=== PATIENT | female | born 1980 | race Caucasian/White ===

== ENCOUNTER → 2016-11-29 | Outpatient (REF) | payer OTHER ==
[~2016-11-29] MED LIST: NAPR500T OR; No Historical Meds; PERC5TAB8 OR; [UNRECOGNIZED DRUG - REMARK]
== END | disposition home or self-care (01) ==
LOC: M LAB REF 17:04
PROVIDERS: ATTEND Advanced Practice Midwife
DX: Z34.83 Encounter for supervision of other normal pregnancy, third trimester (principal); Z36 Encounter for antenatal screening of mother; Z3A.00 Weeks of gestation of pregnancy not specified

== ENCOUNTER → 2017-01-17 | Outpatient (REF) | payer OTHER | LOC: M LAB REF 16:59 | PROVIDERS: ATTEND Specialist | DX: Z34.83 Encounter for supervision of other normal pregnancy, third trimester (principal); Z36 Encounter for antenatal screening of mother; Z3A.00 Weeks of gestation of pregnancy not specified ==

== ENCOUNTER 2017-01-29 21:21 | Outpatient (CLI) | payer OTHER ==
[~2017-01-29] VITALS: Ht 160 cm; Wt 85.0 kg
[2017-01-29 21:42] VITALS: BP 114/73
[2017-01-29] MEDS ORDERED: PRENTAB9 PO (21:46)
[2017-01-29] MEDS ORDERED: subutex PO (22:02)
[2017-01-29] MEDS ORDERED: CLEO300C2 PO (22:40)
[2017-01-29] MEDS ORDERED: CLINDAMYCIN 150 MG CAP PO ONE (22:45)
== END 2017-01-29 23:50 | disposition home or self-care (01) ==
LOC: M LDO 21:21 → EEVIPCON 21:21 → UNDOADMIN 21:41 → M LDI 21:41 → UNDODISIN 23:50
PROVIDERS: ATTEND Obstetrics & Gynecology
DX: O99.89 Other specified diseases and conditions complicating pregnancy, childbirth and the puerperium (principal); L73.2 Hidradenitis suppurativa; N90.89 Other specified noninflammatory disorders of vulva and perineum; M51.26 Other intervertebral disc displacement, lumbar region; F41.9 Anxiety disorder, unspecified; M48.06 Spinal stenosis, lumbar region; F19.90 Other psychoactive substance use, unspecified, uncomplicated; O99.333 Smoking (tobacco) complicating pregnancy, third trimester; Z3A.37 37 weeks gestation of pregnancy; O09.523 Supervision of elderly multigravida, third trimester

== ENCOUNTER 2017-02-11 22:34 | Inpatient (IN) | payer OTHER ==
[~2017-02-11] VITALS: Ht 160 cm; Wt 88.0 kg
[~2017-02-11 22:34] MED LIST changes: +CLEO300C2 PO; +PRENTAB9 PO; +subutex PO
[2017-02-11 22:46] VITALS: BP 122/71
[2017-02-12] VITALS (45 sets, daily range): BP systolic 81–150; BP diastolic 46–106
[2017-02-12] MEDS ORDERED: PENICILLIN G POTASSIUM IV 5 MU in D5W MINI-BAG PLUS 100 ML IV STA (00:20)
[2017-02-12 00:24] LABS: MEAN CORPUSCULAR HEMOGLOBIN 28.6 pg (27.0-33.0); MEAN CORPUSCULAR HGB CONC 32.8 g/dl (32.0-36.5); MEAN CORPUSCULAR VOLUME 87.2 fl (80.0-96.0)
[2017-02-12] MEDS: miSOPROStol 50 MCG 1/2 TAB (S0191) PO SCH ×3 (00:44→08:57)
--- NOTE | 2017-02-12 01:54 | HPE ---
DATE OF ADMISSION: 02/11/2017 Annika is a 36-year-old 4, para 3-0-0-2 at 39-5/7 weeks gestation with estimated date of confinement (EDC) of 02/14/2017 based on first trimester ultrasound. She presents to labor and delivery today for induction of labor due to social reasons. She does report some occasional contractions. Denies vaginal bleeding and leakage of fluid. Her fetus has been active. care was initiated at [facility] in the second trimester. course complicated by advanced maternal age, former drug use currently on subtex throughout , anxiety, smoking hidradenitis supurtiva, prior with a trisomy 13, did not survive. OBSTETRICAL HISTORY: June 06, 1999, she had a spontaneous vaginal delivery of a 40 weeks gestation for 7 pounds 13 ounces male fetus, February 2001 at 38 weeks gestation she had a spontaneous vaginal delivery at 38 weeks for a trisomy fetus that during her labor, June 2013 40 weeks gestation she had a spontaneous vaginal delivery for 6 pounds 1 ounce female [facility]. O+, antibody screen negative, Rubella immune, VDRL nonreactive. Urine culture no growth. Hepatitis B surface antigen negative, human immunodeficiency virus (HIV) negative. Hepatitis C antibody nonreactive. Gonorrhea and chlamydia negative. She did have the [facility] screening for renal anomalies and it was low risk for aneuploidy. She was provided order to do just gestational diabetic screening; however never had the blood work drawn. She is GBS positive and her most recent drug screen on November 29 was also was positive. Repeat drug screen for today ordered. PAST MEDICAL HISTORY: Chronic back pain. History of opiate addiction. Childhood varicella. SURGERIES: Cholecystectomy and back surgery. She has had spinal fusion with rods placed. FAMILY HISTORY: Hypertension, mental retardation. SOCIAL HISTORY: The patient is single. She does report that the father of the baby knows about her . However, he has not been involved in her . Her mother is at bedside and supportive and has been with her throughout her care during her . She is a smoker throughout her . She denies any current illicit drug use, alcohol use. She has a negative history for sexually transmitted infections but does report her partner is positive for genital herpes. She denies history of abuse, physical, sexual and emotional. ALLERGIES: No known drug allergies Current medications include vitamins, Ventolin inhaler. OBJECTIVE: Temperature 96.8, pulse 100, respirations 18, blood pressure (BP) 122/71. She is alert and oriented times three. heart rate 115 with moderate variability, positive excels and no decelerations observed. Has an occasional contraction on EFM. Her abdomen is gravid, cephalic presentation. Estimated weight 7 pounds. Sterile vaginal exam, 1 cm dilated, 80% effaced, minus three station. No bloody show with exam. ASSESSMENT: Intrauterine at 39-5/7 weeks. heart rate category one. PLAN: Admit the patient to labor and delivery. Labs including urine toxicology. Out of bed ad nevaeh. Clear liquid diet. Start misoprostol 50 mcg by mouth every 4 hours for cervical ripening. I do anticipate cervical ripening. I did review risks to induction including failed induction, intolerance to labor and increased risk for . All the patient's questions have been answered and she does desire to proceed with induction of labor at this point.
[2017-02-12] MEDS: PENICILLIN G POTASSIUM IV 2.5 MU in D5W 100 ML IV SCH ×5 (04:51→20:54)
[2017-02-12 05:28] LABS: METHADONE URINE NEGATIVE (NEGATIVE)
[2017-02-12] MEDS ORDERED: LR 1,000 ML IV SCH (13:45)
[2017-02-12] MEDS ORDERED: OXYTOCIN DRIP 30 UNITS in APPROPRIATE DILUENT 1 EA IV SCH ×2 (13:45→23:08)
[2017-02-12] MEDS ORDERED: FENTANYL 2MCG/ML ROPIVACAINE 0.2% NACL 250 ML CADD As Ordered ONE (19:22)
[2017-02-12] MEDS ORDERED: diphenhydrAMINE INJ 50MG/ML VIAL (J1200) IV PRN (20:45)
[2017-02-12] MEDS ORDERED: ePHEDrine SULFATE 25 MG/5 ML(5MG/ML) SYRINGE IV PRN (20:45)
[2017-02-12] MEDS ORDERED: EPIDURAL COMMENT XX SCH (20:45)
[2017-02-12] MEDS ORDERED: EPIDURAL/PCA KEYS XX PRN (20:45)
[2017-02-12] MEDS ORDERED: FENTANYL/ROPIVACAINE/NACL CADD 250 ML EPIDURAL SCH (20:45)
[2017-02-12] MEDS ORDERED: NALOXONE INJ 0.4 MG/1 ML VIAL (J2310) IV PRN (20:45)
[2017-02-12] MEDS ORDERED: LACTATED RINGER'S 1000 ML IV PRN (20:45)
[2017-02-12] MEDS ORDERED: REFRIGERATOR IV KEYS XX PRN (20:45)
[2017-02-12] MEDS ORDERED: ONDANSETRON 4MG/2ML VIAL (J2405) IV PRN (20:45)
[2017-02-12] MEDS ORDERED: MOM 30ML SUSPENSION UDC PO PRN (23:15)
[2017-02-12] MEDS ORDERED: ACETAMINOPHEN 500 MG TAB PO PRN (23:15)
[2017-02-12] MEDS ORDERED: DOCUSATE SODIUM 100 MG CAP PO PRN (23:15)
[2017-02-12] MEDS ORDERED: METHYLERGONOVINE MALEATE 0.2 MG TAB PO PRN (23:15)
[2017-02-12] MEDS ORDERED: DIBUCAINE 1% OINTMENT 30GM TOP PRN (23:15)
[2017-02-12] MEDS ORDERED: RHOGAM 300 MCG (1500 IU) INJ (J2790) IM SCH (23:15)
[2017-02-12] MEDS ORDERED: MEASLES,MUMPS,RUBELLA VACCINE INJ (MMR-II) (90707) SC SCH (23:15)
--- NOTE | 2017-02-12 23:56 | DN ---
DATE: 02/12/2017 TIME OF : 22:53 GENDER: Female. SCORE: 9 and 9. WEIGHT: 7 pounds, 4 ounces, 3294 grams. ESTIMATED BLOOD LOSS OF 300 mL. ANESTHESIA: Epidural. LACERATIONS: First degree midline laceration. COUNTS: 5 laparotomies. Sponges are accounted for prior to and after delivery. One sharp removed from the delivery field. DELIVERY NOTE: On the January at 22:53, Ms. Tang, a 36-year-old 4, now para 4-0-0-3, had a spontaneous vaginal delivery of a live born female , score 9 and 9, weight 7 pounds, 4 ounces, 3294 grams. Head was delivered OA. There was a nuchal cord, which was manually reduced followed a delivery of left anterior shoulder, right posterior shoulder and corpus. was handed to the mom with a good cry. Cord was clamped times 2. It was cut by the patient's mother under my direction. Cord blood was then obtained. Placenta was drained, delivered grossly intact. A premixed bag of 500 mL of normal saline with 30 units of Pitocin was bolused along with uterine massage. The uterus was firm. On inspection, there was a first degree midline laceration, which was repaired with #3-0 Vicryl repeat. On re-inspection, the cervix, vagina and perineum was grossly intact and hemostatic. Mom and baby went to the recovered in stable condition. The patient decided to name her daughter Anisa Chun.
[2017-02-13 02:21] VITALS: BP 136/105
[2017-02-13 02:29] VITALS: BP_SYST 102; BP_SYST 136; BP_DIAS 105; BP_DIAS 56
[2017-02-13 06:21] VITALS: BP 107/56
[2017-02-13] MEDS ORDERED: PRENATAL VITAMIN TAB PO SCH (09:00)
[2017-02-13] MEDS: IBUPROFEN 800 MG TAB PO PRN ×2 (13:38→20:48)
[2017-02-13 17:57] VITALS: BP 166/74
[2017-02-13 21:34] VITALS: BP 166/74
[2017-02-14 05:55] VITALS: BP 121/71
[2017-02-14] MEDS ORDERED: IBUP-1114 PO (07:37)
[2017-02-14] MEDS ORDERED: ACET50TA PO (07:37)
[2017-02-16 14:16] LABS: GC Morphine 1572 ng/mL (Cutoff=200)
== END 2017-02-14 16:19 | disposition home or self-care (01) | DRG 560 ==
LOC: M LDI 22:34 → M OBS 02-13 01:51
PROVIDERS: ADMIT Advanced Practice Midwife; ATTEND Obstetrics & Gynecology
PROC: 0HQ9XZZ Repair Perineum Skin, External Approach (ICD-10-PCS; 2017-02-11)
PROC: 3E0P7GC Introduction of Other Therapeutic Substance into Female Reproductive, Via Natural or Artificial Opening (ICD-10-PCS; 2017-02-11)
PROC: 10E0XZZ Delivery of Products of Conception, External Approach (ICD-10-PCS; principal; 2017-02-12)
DX: O99.72 Diseases of the skin and subcutaneous tissue complicating childbirth (principal); F17.210 Nicotine dependence, cigarettes, uncomplicated; Z3A.39 39 weeks gestation of pregnancy; L73.2 Hidradenitis suppurativa; O69.81X0 Labor and delivery complicated by cord around neck, without compression, not applicable or unspecified; O99.334 Smoking (tobacco) complicating childbirth; O99.824 Streptococcus B carrier state complicating childbirth; O70.0 First degree perineal laceration during delivery; Z37.0 Single live birth

== ENCOUNTER → 2017-03-28 | Outpatient (CLI) | payer MEDICAID ==
[~2017-03-28] MED LIST changes: +ACET50TA PO; +IBUP-1114 PO
== END ==
LOC: M OUTALCOH 07:34
PROVIDERS: ATTEND Psychiatry & Neurology Psychiatry
DX: Z13.9 Encounter for screening, unspecified (principal); F11.20 Opioid dependence, uncomplicated

== ENCOUNTER 2021-07-01 20:47 | Emergency (ER) | payer MEDICAID, SELFPAY ==
[~2021-07-01] VITALS: Ht 157.5 cm; Wt 58.9 kg
[2021-07-01 20:47] VITALS: BP 138/85
[~2021-07-01 20:47] MED LIST changes: -ACET50TA PO; +MAPA500T2 PO
== END 2021-07-01 20:59 | disposition left against medical advice (07) ==
LOC: M ED 20:47
DX: Z53.29 Procedure and treatment not carried out because of patient's decision for other reasons (principal)